=== PATIENT | female | born 1965 | race Caucasian/White ===

== ENCOUNTER → 2016-11-01 | Outpatient (CLI) | payer BC ==
--- NOTE | 2016-11-01 15:48 | RAD ---
Cervical spine, 3 views, 11/01/2016: History: Neck pain There is mild disc space narrowing at C6-7. There are mild to moderate scattered spurs in the mid and lower cervical spine. There are mild degenerative changes involving scattered facet joints bilaterally. No fracture or dislocation is identified. The prevertebral soft tissues are unremarkable. IMPRESSION: 1. Mild to moderate scattered degenerative changes. 2. No acute bony abnormality is detected.
== END | disposition home or self-care (01) ==
LOC: DXRADRC 15:35
PROVIDERS: ATTEND Nurse Practitioner Family
DX: M47.892 Other spondylosis, cervical region (principal)
CPT/HCPCS: 72040

== ENCOUNTER → 2016-11-05 | Outpatient (CLI) | payer BC ==
--- NOTE | 2016-11-05 14:27 | RAD ---
DATE: 11/05/2016 EXAM: DIGITAL SCREEN BILAT W/CAD HISTORY: 51-year-old renal presents for screening mammography. COMPARISON: 06/10/2013 TECHNIQUE: Full field digital or craniocaudal and mediolateral oblique views of both breasts obtained. This study was interpreted with the benefit of Computerized Aided Detection (CAD). FINDINGS: The breast parenchyma shows scattered fibroglandular densities. Level B. There are asymmetries and nodular densities within both breasts which are more conspicuous compared to the prior study, a component of which may be due to to differences in imaging technique. There are few benign calcifications. There is no architectural distortion. IMPRESSION: Focal asymmetries and nodular densities within both breasts, more conspicuous compared to the prior study. Further evaluation with spot compression views of both breasts and full field true lateral views of both breasts is recommended. Sonographic imaging can also be performed if deemed indicated based on additional imaging findings. BI-RADS CATEGORY: 0 INCOMPLETE: NEEDS ADDITIONAL IMAGING EVALUATION/COMPARISON WITH PRIOR STUDIES RECOMMENDED FOLLOW-UP: ADD ADDITIONAL IMAGING Mammography is a sensitive method for finding small breast cancers, but it does not detect them all and is not a substitute for careful clinical examination. A negative mammogram does not negate a clinically suspicious finding and should not result in delay in biopsying a clinically suspicious abnormality. "Our facility is accredited by the [employer] Mammography Program."
== END | disposition home or self-care (01) ==
LOC: MAMMO 12:58
PROVIDERS: ATTEND Nurse Practitioner Family
DX: Z12.31 Encounter for screening mammogram for malignant neoplasm of breast (principal)
CPT/HCPCS: G0202; 77067

== ENCOUNTER → 2016-11-18 | Outpatient (CLI) | payer BC ==
--- NOTE | 2016-11-18 15:07 | RAD ---
DATE: 11/18/16 EXAM: DIGITAL DIAGNOSTIC BILATERAL, BREAST BILATERAL HISTORY: Abnormal screening mammogram COMPARISON: Bilateral screening mammogram from 10/05/16 This study was interpreted with the benefit of Computerized Aided Detection (CAD). Diagnostic bilateral mammogram: 90 degrees mediolateral and spot compression CC view right breast as well as 90 degrees mediolateral and spot compression CC and MLO views of the left breast are obtained. Asymmetric density seen in the right upper outer breast is persistent. There is a probable nodule in the outer breast which is questionably seen in the retroareolar region, approximately 9 cm from the nipple. Additional views of the left breast demonstrate a persistent nodule in the upper outer left breast. Persistent abnormalities on additional workup. Ultrasound to follow. Bilateral breast ultrasound discussion: Targeted sonographic evaluation of the left breast is performed in the upper outer quadrant which demonstrates a well-defined 2.1 x 1.2 cm lymph node at 2:00 position, 11 cm from the nipple. Scanning in the left breast demonstrates a subtle echogenic 1.3 x 1.7 cm nodularity at 10:00 position, 5 cm from the nipple. IMPRESSION: Nodule in the left upper outer breast corresponds to a benign appearing lymph node. Persistent nodule in the right breast probably a corresponds to an echogenic 1.3 x 1.7 cm nodule at 10:00 position, 9 cm from the nipple. Six-month follow-up right breast mammogram and ultrasound may be obtained to ensure stability BI-RADS CATEGORY: 3 PROBABLE BENIGN-SHORT TERM F/U RECOMMENDED FOLLOW-UP: 6M 6 MONTH FOLLOW-UP PQRS compliance statement: Patient information was entered into a reminder system with a target due date for the next mammogram. Mammography is a sensitive method for finding small breast cancers, but it does not detect them all and is not a substitute for careful clinical examination. A negative mammogram does not negate a clinically suspicious finding and should not result in delay in biopsying a clinically suspicious abnormality. ] "Our facility is accredited by the [employer] Mammography Program."
== END | disposition home or self-care (01) ==
LOC: MAMMO 09:53
PROVIDERS: ATTEND Nurse Practitioner Family
DX: N63.21 Unspecified lump in the left breast, upper outer quadrant (principal); N63.10 Unspecified lump in the right breast, unspecified quadrant
CPT/HCPCS: 76641; G0204; 77066

== ENCOUNTER → 2018-01-29 | Outpatient (CLI) | payer OTHER ==
--- NOTE | 2018-01-29 17:28 | RAD ---
Pelvic ultrasound Clinical Indication: Pelvic pain for up to 6 months.. . The exam was suboptimal and limited due to extensive bowel gas. Suboptimal visualization of the ovaries both endovaginally and transabdominally. TRANSABDOMINAL SCAN Uterus measures 8.2 cm long by 3.5 cm AP by 4.7 cm wide. Endometrial stripe measures 4 mm thickness. Left ovary measures 2.3 cm diameter. Right ovary measures 2 cm diameter. TRANSVAGINAL SCAN Uterus: * Size (in centimeters): About 7.2 long by 3.2 AP by 4.7 wide * Appearance: No evidence of mass * Endometrium: 3 mm endometrial stripe thickness. Uniform appearance. Right ovary: * Measures about 1.8 cm long axis. Blood flow is not documented. No dominant mass. Left ovary: * Not visualized endovaginally Free fluid: None visualized IMPRESSION: 1. No evidence of abnormality of uterus. 2. Limited evaluation of the ovaries both transabdominally and endovaginally. No gross adnexal mass. Electronically signed by: Eugenio Fox MD (01/29/2018 5:24 PM) [id number]
--- NOTE | 2018-01-29 17:32 | RAD ---
Complete abdominal ultrasound History: Abdominal pelvic pain for over 6 months.. Findings: Aorta: No evidence of aneurysm. Inferior vena cava: Patent Pancreas: Unremarkable Liver: Unremarkable and not enlarged Gallbladder: There are some echogenic appearance within the gallbladder but no definite calculus or posterior shadowing. Gallbladder wall thickness is not measured but does not appear grossly thickened. Bile ducts: No evidence of dilatation Right kidney: 11.3 cm length. No evidence of hydronephrosis. Left kidney: 10.5 cm length. No evidence of hydronephrosis. Spleen: Not enlarged Impression: 1. There is some echogenic heterogeneity within the gallbladder, no definite gallstone but difficult to confidently exclude cholelithiasis. 2. No other sonographic abnormalities. Electronically signed by: Eugenio Fox MD (01/29/2018 5:29 PM) [id number]
== END | disposition home or self-care (01) ==
LOC: US 09:40
PROVIDERS: ATTEND Registered Nurse
DX: R10.2 Pelvic and perineal pain (principal); R10.84 Generalized abdominal pain
CPT/HCPCS: 76700; 76830; 76856

== ENCOUNTER → 2018-05-11 | Outpatient (CLI) | payer OTHER ==
--- NOTE | 2018-05-11 15:55 | RAD ---
Cervical spine, 3 views, 05/11/2018: HISTORY: Left arm and left leg pain There is mild reversal of the normal cervical lordosis. The intervertebral disc spaces are fairly well-maintained. There are mild scattered marginal spurs in the mid and lower cervical spine. No fracture or subluxation is evident. No prevertebral soft tissue swelling is seen. IMPRESSION: 1. Mild scattered degenerative changes. 2. Mild reversal of the normal cervical lordosis which can be due to muscle spasm. 3. No acute bony abnormality is detected. Lumbar spine, 3 views, 05/11/2018: The lumbar vertebral heights are well-maintained. There are mild scattered marginal spurring with minimal disc space narrowing at several levels. No fracture or subluxation is evident. The paraspinous soft tissues are unremarkable. IMPRESSION: 1. Mild scattered degenerative changes. 2. No acute bony abnormality is detected. Electronically signed by: Yosef Bergman MD (05/11/2018 3:52 PM) [facility]
== END | disposition home or self-care (01) ==
LOC: PMG 15:12
PROVIDERS: ATTEND Registered Nurse
DX: M47.892 Other spondylosis, cervical region (principal); M47.896 Other spondylosis, lumbar region; M46.02 Spinal enthesopathy, cervical region; M48.061 Spinal stenosis, lumbar region without neurogenic claudication; M46.06 Spinal enthesopathy, lumbar region
CPT/HCPCS: 72040; 72100

== ENCOUNTER → 2019-07-23 | Outpatient (CLI) | payer OTHER ==
--- NOTE | 2019-07-23 13:28 | RAD ---
DOPPLER CAROTID BILAT History: syncope Multiple grayscale, color, and duplex spectral analysis waveform sonographic images were acquired of the carotid, subclavian, and vertebral arteries. Comparison: None Findings: RIGHT SIDE: Peak systolic flow velocity of the distal CCA is 93 cm/sec. Peak systolic flow velocity of the ICA is 107 cm/sec. The ICA/CCA ratio is 1.1. Peak end diastolic flow velocity of the ICA is 23 cm/sec. The peak systolic velocity of the ECA is 98 cm/sec. No significant plaque formation is identified. LEFT SIDE: Peak systolic flow velocity of the distal CCA is 80 cm/sec. Peak systolic flow velocity of the ICA is 80 cm/sec. The ICA/CCA ratio is 1.0. Peak end diastolic flow velocity of the ICA is 30 cm/sec. Peak systolic flow velocity of the ECA is 82 cm/sec. No significant plaque formation is identified. Vertebral arteries: Bilateral vertebral arteries demonstrate antegrade flow. Impression: There is no evidence of a hemodynamically significant stenosis. PQRS Compliance Statement - Stenosis calculations for carotid ultrasound studies are derived from validated velocity criteria which are known to correlate with the NASCET methodology. Electronically signed by: Junior Chairez MD (07/23/2019 1:25 PM) [id number]
== END ==
LOC: US 10:41
PROVIDERS: ATTEND Physician Assistant
DX: R55 Syncope and collapse (principal)
CPT/HCPCS: 93880

== ENCOUNTER → 2019-08-24 | Outpatient (CLI) | payer OTHER ==
--- NOTE | 2019-08-25 07:47 | CARD ---
MR#: [id number] Date of Study: 08/24/2019 Ordering Physician: PASTOR CARLSON, Referring Physician: PASTOR CARLSON, Tech: Sammie Saavedra APPROVED REPORT EXAM: Two-dimensional and M-mode echocardiogram with Doppler and color Doppler. Other Information Quality : AverageHR: 75bpm INDICATION Murmur 2D DIMENSIONS RVDd2.5 (2.9-3.5cm)Left Atrium(2D)3.3 (1.6-4.0cm) IVSd1.0 (0.7-1.1cm)Aortic Root(2D)3.1 (2.0-3.7cm) LVDd4.5 (3.9-5.9cm)LVOT Diameter2.0 (1.8-2.4cm) PWd1.0 (0.7-1.1cm)LVDs2.5 (2.5-4.0cm) FS (%) 43.0 %SV66.9 ml LVEF(%)74.3 (>50%) Aortic Valve AoV Peak Daren.156.3cm/sAoV VTI34.3cm AO Peak GR.9.8mmHgAO Mean GR.5mmHg Mitral Valve MV E Eustnhwx76.4cm/sMV E Peak Gr.4mmHg MV DECEL [id number] A Wcksrfxl56.3cm/s MV E Mean Gr.2mmHgE/A Ratio1.2 Tricuspid Valve TR P. Bvppyzjh713rn/sRAP AQIIUVQT1odCh TR Peak Gr.70htBnUFTH03xoAt Pulmonary Vein S1 Faiokosb25.1cm/sD2 Sqpzqxhh96.7cm/s LEFT VENTRICLE The left ventricle is normal size. There is normal left ventricular wall thickness. The left ventricu lar systolic function is normal. The Ejection Fraction is 55%. There is normal LV segmental wall daisy on. The left ventricular diastolic function and filling is normal for age. RIGHT VENTRICLE The right ventricle is normal size. There is normal right ventricular wall thickness. The right ventr icular systolic function is normal. ATRIA The left atrium size is normal. The right atrium size is normal. The interatrial septum is intact wit h no evidence for an atrial septal defect or patent foramen ovale as noted on 2-D or Doppler imaging. AORTIC VALVE The aortic valve is normal in structure and function. Doppler and Color Flow revealed no significant aortic regurgitation. There is no significant aortic valvular stenosis. MITRAL VALVE The mitral valve is normal in structure and function. There is no evidence of mitral valve prolapse. There is no mitral valve stenosis. Doppler and Color-flow revealed trace mitral regurgitation. TRICUSPID VALVE The tricuspid valve is normal in structure and function. Doppler and Color Flow revealed trace tricus pid regurgitation with an estimated PAP of 27 mmHg. There is no tricuspid valve stenosis. PULMONIC VALVE The pulmonary valve is normal in structure and function. Doppler and Color Flow revealed trace pulmon ic valvular regurgitation. GREAT VESSELS The aortic root is normal in size. The ascending aorta is normal in size. The IVC is normal in size a nd collapses >50% with inspiration. PERICARDIAL EFFUSION There is no evidence of significant pericardial effusion. Critical Notification Critical Value: No <Conclusion> The left ventricular systolic function is normal. The Ejection Fraction is 55%. There is normal LV segmental wall motion. Trace mitral regurgitation. Trace tricuspid regurgitation with an estimated PAP of 27 mmHg. There is no evidence of significant pericardial effusion. Signed by : Octavio Rabago, Electronically Approved : 08/25/2019 07:46:37
== END ==
LOC: ECHO 14:37
PROVIDERS: ATTEND Internal Medicine Cardiovascular Disease
DX: R01.1 Cardiac murmur, unspecified (principal)
CPT/HCPCS: 93306

== ENCOUNTER → 2020-01-12 | Outpatient (CLI) | payer OTHER ==
--- NOTE | 2020-01-12 16:20 | RAD ---
EXAM: Right shoulder, 3 views. HISTORY: Pain. COMPARISON: None. FINDINGS: 3 views of the right shoulder obtained. There is no fracture, dislocation or subluxation. There is minimal marginal humeral head spurring. IMPRESSION: No acute osseous finding. Electronically signed by: Gabrielle Mackey MD (01/12/2020 4:17 PM) [facility]
== END ==
LOC: PMG 10:10
PROVIDERS: ATTEND Physician Assistant
DX: M25.511 Pain in right shoulder (principal)
CPT/HCPCS: 73030

== ENCOUNTER → 2020-04-25 | Outpatient (CLI) | payer OTHER ==
--- NOTE | 2020-04-25 16:06 | RAD ---
2 views of the right calcaneus without comparison for heel pain. FINDINGS: There is no fracture or acute osseous abnormality identified. There is a sharp calcaneal david ne spur and there is a calcaneal enthesophyte. IMPRESSION: 1. No acute osseous abnormality. Electronically signed by: Kevon Gomez MD (04/25/2020 4:04 PM) [id number]
== END ==
LOC: PMG 09:51
PROVIDERS: ATTEND Physician Assistant
DX: M77.31 Calcaneal spur, right foot (principal)
CPT/HCPCS: 73650

== ENCOUNTER → 2021-04-27 | Outpatient (CLI) | payer BC ==
--- NOTE | 2021-04-27 17:20 | RAD ---
US ABDOMEN COMPLETE History: Reason: RUQ PAIN / Spl. Instructions: / History: Comparison: None. Technique: Sonographic examination of the abdomen was performed and multiple grayscale and color Dopp ler static images were obtained. Findings: Liver demonstrates increased echogenicity. The liver measures 14.6 cm. Portal flow is patent. No cholelithiasis, gallbladder wall thickening or pericholecystic fluid. Common bile duct measures 4 mm in diameter. Visualized pancreas unremarkable. The right kidney measures 10.4 x 4.0 x 4.8 cm. No hydronephrosis. The left kidney measures 11.1 x 5.2 x 5.1 cm. No hydronephrosis. The spleen measures 10.1 cm. Visualized portions of the abdominal aorta and IVC are normal. IMPRESSION: 1. Increased hepatic echotexture, may indicate steatosis. Electronically signed by: Marcos Sr DO (04/27/2021 5:18 PM) [id number]
== END ==
LOC: US 10:00
PROVIDERS: ATTEND Surgery
DX: R10.11 Right upper quadrant pain (principal)
CPT/HCPCS: 76700

== ENCOUNTER → 2021-05-14 | Outpatient (CLI) | payer BC ==
[~2021-05-14] VITALS: Ht 167.6 cm; Wt 115.7 kg
[~2021-05-14] MED LIST: NORMAL SALINE IV ONE; SINCALIDE IV ONE
--- NOTE | 2021-05-14 16:20 | RAD ---
PROCEDURE: HIDA with EF measurements Indication: Abdominal pain. 56 years Female abdominal pain. TECHNIQUE: After the intravenous administration of 5.5 mCi of Tc 99m Choletec, imaging over the abdom en was obtained. This was followed by administration of 2.3 mcg of CCK , followed by continued imagin g with ejection fraction measured. FINDINGS: There is fairly homogeneous is uptake in the liver with prompt bile duct and gallbladder fi lling seen. Bowel activity is seen at 10 minutes. Based on further imaging and gallbladder area of interest activity measurements after, the gallbladde r ejection fraction is estimated at 93%. IMPRESSION: Normal gallbladder ejection fraction. Electronically signed by: Richy Khanna MD (05/14/2021 4:18 PM) [id number]
== END ==
LOC: NM 07:50
PROVIDERS: ATTEND Surgery
DX: R10.13 Epigastric pain (principal)
CPT/HCPCS: 78227; A9537; J2805